=== PATIENT | male | born 1960 ===

== ENCOUNTER 2021-11-13 07:05 | Observation (INO) ==
[2021-11-13] MEDS ORDERED: PANTOPRAZOLE 40 MG VIAL IV STA (09:05)
[2021-11-13] MEDS ORDERED: SODIUM CHLORIDE 0.9% 1,000 ML IV STA (09:05)
[2021-11-13 09:24] LABS: Basophils # 0.1 10*3/uL (0.0-0.2); Basophils % 0.6 % (0.0-0.8); Eosinophils # 0.2 10*3/uL (0.0-0.87); Eosinophils % 2.6 % (0.00-10.9); Immature Granulocytes % 0.3 %; Immature Granulocytes Absolute 0.03 #; Lymphocytes # 2.2 10*3/uL (1.4-4.0); Mean Corpuscular HGB Conc 33.3 GM/DL (32-36); Mean Corpuscular Volume 95.5 FL (87-102); Mean Platelet Volume 9.4 FL (9.6-12.0); Monocytes % 7.8 % (1.7-12.7); Neutrophils % 64.7 % (38.7-73.9); Platelet Count 312 T/CUMM (130-400); Red Cell Distribution Width 13.3 % (9.3-17.3)
[2021-11-13] MEDS ORDERED: PANTOPRAZOLE 40 MG VIAL IV ONE (09:24)
[2021-11-13 09:36] LABS: INR 0.9; PT Patient Result 10.5 SECS (10.5-12.0); Partial Thromboplastin Time 27.3 SECS (23.8-32.1)
[2021-11-13 09:49] LABS: Albumin 4.7 G/DL (3.4-5.0); Bilirubin,Total 0.7 MG/DL (0.20-1.00); Calcium 9.4 MG/DL (8.5-10.1); Osmolality,Calculated 283.3 MOS/KG (273-304); Potassium 3.9 MMOL/L (3.5-5.1)
[2021-11-13] MEDS ORDERED: ACETAMINOPHEN 325 MG TABLET PO PRN (11:39)
[2021-11-13] MEDS ORDERED: GLUCAGON 1 MG VIAL IM PRN (11:39)
[2021-11-13] MEDS ORDERED: NICOTINE 21 MG/24 HR PATCH TRANSDERM PRN (11:42)
[2021-11-13] MEDS ORDERED: DEXTROSE 50% 25 GM/50 ML SYRINGE IV PRN (11:43)
[2021-11-13] MEDS ORDERED: chlordiazePOXIDE 25 MG CAPSULE PO SCH (12:00)
[2021-11-13] MEDS ORDERED: LORazepam 1 MG TABLET PO SCH (12:00)
[2021-11-13] MEDS ORDERED: THIAMINE INJ 100 MG, FOLIC ACID INJ 1 MG, MULTIVITAMIN INJ 10 ML in SODIUM CHLORIDE 0.9... IV SCH (13:00)
[2021-11-13] MEDS: LORazepam 1 MG TABLET PO SCH ×2 (14:08→20:51)
[2021-11-13] MEDS: PANTOPRAZOLE 40 MG VIAL IV SCH ×2 (14:08→20:52)
[2021-11-13 17:58] LABS: Hematocrit 34.8 VOL% (42.0-52.0); Hemoglobin 11.6 GM/DL (14.0-18.0)
[2021-11-13] MEDS ORDERED: LOSARTAN 50 MG TABLET PO SCH (21:00)
[2021-11-13] MEDS ORDERED: amLODIPine 10 MG TABLET PO SCH (21:00)
[2021-11-13] MEDS ORDERED: ATORVASTATIN 40 MG TABLET PO SCH (21:00)
[2021-11-13] MEDS ORDERED: METOPROLOL SUCCINATE XL 50 MG TABLET PO SCH (21:00)
[2021-11-13 23:53] LABS: Hematocrit 37.2 VOL% (42.0-52.0); Hemoglobin 12.4 GM/DL (14.0-18.0)
[2021-11-14] MEDS: LORazepam 1 MG TABLET PO SCH ×2 (02:04→08:40)
[2021-11-14 05:53] LABS: Basophils # 0.1 10*3/uL (0.0-0.2); Basophils % 0.6 % (0.0-0.8); Eosinophils # 0.5 10*3/uL (0.0-0.87); Eosinophils % 5.5 % (0.00-10.9); Hematocrit 37.9 VOL% (42.0-52.0); Hemoglobin 12.6 GM/DL (14.0-18.0); Immature Granulocytes % 0.4 %; Immature Granulocytes Absolute 0.03 #; Lymphocytes % 24.4 % (21.2-54.2); Mean Corpuscular HGB Conc 33.2 GM/DL (32-36); Mean Corpuscular Volume 95.7 FL (87-102); Mean Platelet Volume 9.7 FL (9.6-12.0); Monocytes % 7.1 % (1.7-12.7); Platelet Count 281 T/CUMM (130-400); Red Blood Count 3.96 MC/CUMM (3.8-5.5); Red Cell Distribution Width 13.2 % (9.3-17.3); White Blood Count 8.4 T/CUMM (4-12)
[2021-11-14 06:12] LABS: Calcium 9.2 MG/DL (8.5-10.1); Osmolality,Calculated 279.4 MOS/KG (273-304); Potassium 3.6 MMOL/L (3.5-5.1)
[2021-11-14] MEDS ORDERED: LACTATED RINGERS 1,000 ML IV SCH (07:00)
[2021-11-14 07:20] LABS: Hematocrit 37.2 VOL% (42.0-52.0); Hemoglobin 12.5 GM/DL (14.0-18.0)
[2021-11-14] MEDS ORDERED: LIDOCAINE 2% 5 ML VIAL ONE (07:41)
[2021-11-14] MEDS ORDERED: propofoL 200 MG/20 ML VIAL IV ONE (07:41)
[2021-11-14] MEDS ORDERED: ETOMIDATE 20 MG/10 ML VIAL IV ONE (07:43)
[2021-11-14 08:31] VITALS: BP 129/78
[2021-11-14] MEDS ORDERED: CHLORTHALIDONE 25 MG TABLET PO SCH (09:00)
[2021-11-14] MEDS ORDERED: PANTOPRAZOLE 40 MG TABLET PO SCH (09:00)
== END 2021-11-14 09:28 | disposition home or self-care (01) ==
LOC: N.ED 07:05 → N.EDINP 07:05 → N.2E 15:27
PROVIDERS: ADMIT Internal Medicine; ATTEND Internal Medicine